=== PATIENT | male | born 1940 | race Caucasian/White ===

== ENCOUNTER 2018-01-29 02:56 | Inpatient (IN) | payer MEDICARE, BC ==
[~2018-01-29] VITALS: Ht 167.6 cm; Wt 90.7 kg
[2018-01-29 02:58] VITALS: BP 185/98
[2018-01-29] MEDS ORDERED: NOHOMEMEDICATIONS (03:09)
[2018-01-29 03:18] LABS: ABSOLUTE EOSINOPHILS 0.3 thou/uL (0.0-0.7); ABSOLUTE LYMPHOCYTES 1.8 thou/uL (0.8-5.3); ABSOLUTE MONOCYTES 0.6 thou/uL (0.0-1.2); ABSOLUTE NEUTROPHILS 3.4 thou/uL (1.6-8.1); BASOPHILS 0.6 %; EOSINOPHILS 4.5 %; HEMATOCRIT 43.3 % (42.0-52.0); HEMOGLOBIN 14.4 gm/dL (14.0-18.0); MCH 29.2 pg (26.0-34.0); MCHC 33.2 g/dL (28.0-37.0); MCV 88.1 fL (80.0-100.0); MONOCYTES 9.7 %; MPV 8.7 fl. (7.2-11.1); NUCLEATED RBCS 0 /100WBC; PLATELET COUNT* 249 thou/uL (150-400); POLYS 55.2 %; RBC 4.91 mil/uL (4.50-6.00); RDW-CV 13.9 % (10.5-14.5); WBC 6.1 thou/uL (4.0-11.0)
[2018-01-29 03:30] LABS: ANION GAP 8 mmol/L (7-16); BUN 23 mg/dL (7-18); CALCIUM 8.9 mg/dL (8.5-10.1); CHLORIDE 103 mmol/L (98-107); CO2 28 mmol/L (21-32); GLUCOSE 126 mg/dL (70-99); SODIUM 139 mmol/L (136-145)
[2018-01-29 03:33] LABS: PROTIME 10.4 Seconds (9.20-11.50)
[2018-01-29 03:41] LABS: ALBUMIN 3.7 g/dL (3.4-5.0); ALKALINE PHOSPHATASE 51 U/L (46-116); LIPASE 130 U/L (73-393); NT-PRO BRAIN NAT PEPTIDE 141 pg/mL (<300); SGOT 17 U/L (15-37); SGPT 25 U/L (30-65); TOTAL BILIRUBIN 0.3 mg/dL (<0.1-1.0); TOTAL PROTEIN 7.5 g/dL (6.4-8.2); TROPONIN-I LEVEL <0.06 ng/mL (<0.06)
[2018-01-29 05:39] VITALS: BP 164/85
[2018-01-29 06:07] VITALS: BP 161/81
[2018-01-29 07:27] LABS: URINE BILIRUBIN NEGATIVE (Negative); URINE BLOOD NEGATIVE (Negative); URINE CLARITY CLEAR; URINE COLOR YELLOW; URINE GLUCOSE-RANDOM NEGATIVE (Negative); URINE KETONES NEGATIVE (Negative); URINE LEUKOCYTES-REFLEX NEGATIVE (Negative); URINE NITRITE-REFLEX NEGATIVE (Negative); URINE PROTEIN NEGATIVE (Negative); URINE UROBILINOGEN 0.2 E.U./dl (0.2-1.0)
[2018-01-29 08:30] VITALS: BP 145/68
[2018-01-29 11:23] VITALS: BP 173/82
--- NOTE | 2018-01-29 14:09 | 2DMMODE ---
[place] [address] 2 D/M-MODE ECHOCARDIOGRAM Name: JAYSHREE CORRIGAN Room: [address] IN [facility]#: [id number] Admission: 01/29/18 Attend Phys: Casey Russell, Discharge: Date of : 38 Date of Service: 01/29/18 1409 Report #: [id number] THIS REPORT FOR: //name// APPROVED REPORT Study performed: 01/29/2018 12:00:23 EXAM: Comprehensive 2D, Doppler, and color-flow Echocardiogram Patient Location: In-Patient Room #: 225 Status: routine BSA: 2.00 HR: 60 bpm BP: 173/82 mmHg Rhythm: NSR Other Information Study Quality: Good Indications Chest Pain 2D Dimensions IVSd: 10.54 (7-11mm) LVOT Diam: 22.09 (18-24mm) LVDd: 48.54 mm PWd: 9.26 (7-11mm) Ascending Ao: 40.89 (22-36mm) LVDs: 31.32 (25-40mm) Aortic Root: 37.71 mm Volumes Left Atrial Volume (Systole) LA ESV Index: 43.70 mL/m2 Aortic Valve AoV Peak Joshua.: 1.34 m/s AO Peak Gr.: 7.18 mmHg LVOT Max P.69 mmHg AO Mean Gr.: 3.46 mmHg LVOT Mean P.76 mmHg LVOT Max V: 0.96 m/s AO V2 VTI: 27.04 cm LVOT Mean V: 0.61 m/s DANIEL (VTI): 3.17 cm2 LVOT V1 VTI: 22.37 cm AI [place]: 2.99 m/s2 AI PHT: 453.46 ms Mitral Valve E/A Ratio: 0.67 [place] [address] 2 D/M-MODE ECHOCARDIOGRAM Name: JAYSHREE CORRIGAN Room: [address] IN ..#: [id number] Admission: 01/29/18 Attend Phys: Casey Russell, Discharge: Date of : 38 Date of Service: 01/29/18 1409 Report #: [id number] MV Decel. Time: 248.63 ms MV E Max Joshua.: 0.71 m/s MV PHT: 72.10 ms MVA (PHT): 3.05 cm2 TDI E/Lateral E': 10.14 E/Medial E': 11.83 Medial E' Joshua.: 0.06 m/s Lateral E' Joshua.: 0.07 m/s Pulmonary Valve PV Peak Joshua.: 0.80 m/s PV Peak Gr.: 2.56 mmHg Left Ventricle The left ventricle is normal size. There is normal LV segmental wall motion. There is normal left ventricular wall thickness. Left ventricular systolic function is normal. LVEF is 60-65%. Grade I - abnormal relaxation pattern. Right Ventricle The right ventricle is normal size. The right ventricular systolic function is normal. Atria Left atrium is moderately dilated. The right atrium size is normal. Aortic Valve The aortic valve is normal in structure. Moderate aortic regurgitation. There is no aortic valvular stenosis. Mitral Valve The mitral valve is normal in structure. Mild mitral regurgitation. No evidence of mitral valve stenosis. Tricuspid Valve The tricuspid valve is normal in structure. Unable to assess PA pressure. Trace tricuspid regurgitation. Pulmonic Valve The pulmonary valve is normal in structure. Mild pulmonic regurgitation. Great Vessels Aortic root is mildly dilated. IVC is normal in size and collapses >50% [place] [address] 2 D/M-MODE ECHOCARDIOGRAM Name: JAYSHREE CORRIGAN Room: [address] IN [facility]#: [id number] Admission: 01/29/18 Attend Phys: Casey Russell, Discharge: Date of : 38 Date of Service: 01/29/18 1409 Report #: [id number] Pericardium There is no pericardial effusion. <Conclusion> The left ventricle is normal size. There is normal left ventricular wall thickness. Left ventricular systolic function is normal. LVEF is 60-65%. Grade I - abnormal relaxation pattern. Left atrium is moderately dilated. Moderate aortic regurgitation. Mild mitral regurgitation. Aortic root is mildly dilated. IVC is normal in size and collapses >50% with inspiration. <ELECTRONICALLY SIGNED> By: Dg Castro MD, FACC 01/29/18 1409 140 140 Dg Castro MD, FACC /INF
--- NOTE | 2018-01-29 16:24 | EKG ---
[place] [address] ELECTROCARDIOGRAM REPORT Name: JAYSHREE CORRIGAN Room: [address] ADM IN M.R.#: [id number] Admission: 01/29/18 Attend Phys: Casey Russell MD Discharge: Date of : 38 Report #: [id number] THIS REPORT FOR: //name// [facility] ED Test Date: 2018-01-29 Test Time: 05:33:38 Pat Name: JAYSHREE CORRIGAN Department: Room: [address] Gender: M Furniture Sales Associate: : 1940 Requested By: Caitlin Sabillon Order Number: [id number] Geraldo MD: Dg Castro Measurements Intervals [place] Rate: 63 P: 46 MO: 178 QRS: -21 QRSD: 96 T: 45 QT: 397 QTc: 407 Interpretive Statements Sinus rhythm Left ventricular hypertrophy, by voltage Baseline wander in lead(s) V3 No previous ECG available for comparison Electronically Signed On 01-29-2018 16:24:33 BOTTLE ASSEMBLER by Dg Castro [email or web address] <ELECTRONICALLY SIGNED> By: Dg Castro MD, [facility] 01/29/18 1624 2 2 Dg Castro MD, FACC /EPI
--- NOTE | 2018-01-29 16:24 | EKG ---
[place] [address] ELECTROCARDIOGRAM REPORT Name: JAYSHREE CORRIGAN Room: [address] ADM IN M.R.#: [id number] Admission: 01/29/18 Attend Phys: Casey Russell MD Discharge: Date of : 38 Report #: [id number] THIS REPORT FOR: //name// [facility] ED Test Date: 2018-01-29 Test Time: 03:01:05 Pat Name: JAYSHREE CORRIGAN Department: Room: [facility] Gender: M Social Service Assistant: AP : 1940 Requested By: Caitlin Sabillon Order Number: [id number] MD: Dg Castro Measurements Intervals [place] Rate: 65 P: 3 IN: 184 QRS: -16 QRSD: 97 T: 54 QT: 381 QTc: 397 Interpretive Statements Sinus rhythm RSR' in V1 or V2, probably normal variant Left ventricular hypertrophy, by voltage No previous ECG available for comparison Electronically Signed On 01-29-2018 16:24:10 BRANCH SALES AND SERVICE REPRESENTATIVE by Dg Castro [email or web address] <ELECTRONICALLY SIGNED> By: Dg Castro MD, [facility] 01/29/18 1624 0 0 Dg Castro MD, [facility] /EPI
--- NOTE | 2018-01-29 17:57 | CARDNUC ---
[place] [address] CARDIAC NUCLEAR IMAGING REPORT Name: JAYSHREE CORRIGAN Room: [address] IN [facility]#: [id number] Admission: 01/29/18 Attend Phys: Casey Russell, Discharge: Date of : 38 Date of Service: 01/29/18 1757 Report #: [id number] THIS REPORT FOR: //name// APPROVED REPORT Study performed: 01/29/2018 10:02:00 Indication: Chest pain, Dyspnea Patient Location: In-Patient Room #: 225 Stress Tech: Gita Stuart Stress Nurse: aPyal Cole RN Ht: 5 ft 9 in Wt: 208 lbs BSA: 2.10 m2 BMI: 30.71 Medical History Medical History: Angina, SOB, Dizziness, Lightheadedness, Left Ventricular Hypertrophy Medications: No home medications Allergies: Anasthesia Cardiac Risk Factors: Age, HTN, FHX of CAD, SOB Previous Cardiac Procedures: None Pretest Chest Pain Characteristics: Chest pain 05/05 Exercise History: Sedentary Physical Disabilities: Generalized weakness Meds Held (24 hrs): None Pharmacologic Stress Pharmacologic stress test was performed by injecting Regadenoson 0.4 mg IV push over 10-15 seconds immediately followed by the intravenous injection of 38.0 mCi of Tc-99m Sestamibi. Time of stress injection: 16:15 Date: 01/29/2018 Administration Route: IV Administration Site: Left AC Heart Rate at time of stress injection: 93 bpm. Gated Stress SPECT was performed 40 minutes after stress injection. The images were gated to evaluate regional wall motion and calculate left ventricular ejection fraction. Prone imaging was performed. Stress Test Details Stress Test: Pharmacologic stress testing performed using 0.4 mg of regadenoson per 5 mL given IV over 10 [place] [address] CARDIAC NUCLEAR IMAGING REPORT Name: JAYSHREE CORRIGAN Room: [address] IN [facility].#: [id number] Admission: 01/29/18 Attend Phys: Casey Russell, Discharge: Date of : 38 Date of Service: 01/29/18 1757 Report #: [id number] Reason for pharmacologic stress test: physical limitation, generalized weakness, unstable gait.. HR Max Heart Rate (APMHR): 142 bpm Resting HR: 68 bpm Target HR (85% APMHR): 120 bpm Max HR Achieved: 93 bpm % of APMHR: 65 Recovery HR: 79 bpm BP Resting BP: 116/74 mmHg Max BP: 234/73 mmHg Recovery BP: 118/75 mmHg ECG Resting ECG: Sinus Rhythm, normal EKG Stress ECG: Sinus Rhythm, normal EKG ST Change: None Arrhythmia: None Recovery ECG: Sinus Rhythm, normal EKG Recovery ST Change: None Recovery Arrhythmia: None Clinical Reason for Termination: Completed protocol Stress Symptoms: Lightheaded, nausea Exercise duration: 0 min 0 sec Exercise capacity: 1.00 METs The patient tolerated Lexiscan infusion without significant symptoms. Nurse Comments 77 year old inpatient presented with generalized weakness and chest pain rated 3/10, localized in central chest. Patient tolerated sitting lexiscan well with minimal side effects listed above which resolved with caffeine. Recovery unremarkable. Patient pleasant and stable while escorted by staff via wheelchair to nuclear medicine for images. Patient stable with no complaints at that time. Stress ECG Conclusion Baseline 12-lead EKG shows normal sinus rhythm with no significant ST or T wave abnormalities. EKGs obtained during and post Lexiscan infusion show sinus rhythm with no significant ST or T wave changes when compared baseline. There were no stress-induced arrhythmias[place] [address] CARDIAC NUCLEAR IMAGING REPORT Name: JAYSHREE CORRIGAN Room: [address]#: [id number] Admission: 01/29/18 Attend Phys: Casey Russell, Discharge: Date of : 38 Date of Service: 01/29/18 1757 Report #: [id number] Study: Good Artifact: No artifact Study Data Post stress, the left ventricular ejection was 57%.. Perfusion Normal left ventricular perfusion. Wall Motion Normal left ventricular wall motion. Nuclear Conclusion ECG Findings: negative for ischemia Clinical Findings: negative for ischemia Nuclear Findings: negative for ischemia Exercise Capacity: not assessed Left Ventricular Function: normal Risk Study: low Myocardial perfusion images show no defect to suggest infarct or ischemia. Left ventricular systolic function appears normal on gated studies. This is a low risk study. <Conclusion> Baseline 12-lead EKG shows normal sinus rhythm with no significant ST or T wave abnormalities. EKGs obtained during and post Lexiscan infusion show sinus rhythm with no significant ST or T wave changes when compared baseline. There were no stress-induced arrhythmias. <ELECTRONICALLY SIGNED> By: Dg Castro MD, FACC 01/29/18 175 56 56 Dg Castro MD, FACC /INF
[2018-01-29 20:00] VITALS: BP 146/69
[2018-01-30] VITALS: BP 124/53
[2018-01-30 04:00] VITALS: BP 119/42
[2018-01-30 08:45] VITALS: BP 119/42
[2018-01-30 09:20] VITALS: BP 125/62
[2018-01-30] MEDS ORDERED: NORVASC2.5 MG PO (11:10)
== END 2018-01-30 11:30 | disposition home or self-care (01) | DRG 556 ==
LOC: M.ERS 02:56 → M.TBA-ER 05:19 → M.2W 05:19
PROVIDERS: Emergency Medicine; ADMIT Internal Medicine
DX: M79.18 Myalgia, other site (principal); I10 Essential (primary) hypertension; Z90.49 Acquired absence of other specified parts of digestive tract; Z88.4 Allergy status to anesthetic agent; Z82.49 Family history of ischemic heart disease and other diseases of the circulatory system

== ENCOUNTER → 2018-06-14 | Outpatient (CLI) | payer MEDICARE, BC ==
[~2018-06-14] MED LIST: NOHOMEMEDICATIONS; NORVASC2.5 MG PO
--- NOTE | 2018-06-14 16:24 | EKG ---
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[employer]: : 1940 Requested By: Serafin Gonzalez Order Number: [id number] Reading MD: Kelvin Cavazos Measurements Intervals [place] Rate: 63 P: 26 NV: 166 QRS: -15 QRSD: 97 T: 36 QT: 403 QTc: 413 Interpretive Statements Sinus rhythm RSR' in V1 or V2, probably normal variant Left ventricular hypertrophy Compared to ECG 01/29/2018 05:33:38 no change Electronically Signed On 06-14-2018 16:24:31 CDT by Kelvin Cavazos [email or web address] <ELECTRONICALLY SIGNED> By: Kelvin Cavazos MD, [facility] 06/14/18 1624 1554 1554 Kelvin Cavazos MD, FACC /EPI
== END ==
LOC: M.CRD 15:25
DX: Z01.818 Encounter for other preprocedural examination (principal); I11.9 Hypertensive heart disease without heart failure